=== PATIENT | male | born 1960 | race Caucasian/White ===

== ENCOUNTER 2016-09-17 12:24 | Outpatient (CLI) ==
[2016-09-17 13:12] LABS: FLU INTERNAL QC INTERNAL QC VALID; RAPID FLU A NEGATIVE (NEGATIVE); RAPID FLU B NEGATIVE (NEGATIVE)
== END 2016-09-17 12:25 | disposition home or self-care (01) ==
LOC: RAD 12:24 → LAB 12:25
PROVIDERS: ATTEND Family Medicine
DX: J40 Bronchitis, not specified as acute or chronic (principal); R53.81 Other malaise
CPT/HCPCS: 87804